=== PATIENT | male | born 1945 | race Caucasian/White ===

== ENCOUNTER 2022-04-03 18:46 | Emergency (ER) | payer MEDICARE, SELFPAY ==
[2022-04-03 18:57] VITALS: BP 138/53; PULSE 86; RESP 16; TEMP 37.3; O2SAT 98
--- NOTE | 2022-04-03 19:20 | ED.GENADULT ---
HPI - General Adult General Chief complaint: Upper Respiratory Infection Stated complaint: Cold Symptoms Source: patient Mode of arrival: ambulatory Limitations: no limitations History of Present Illness HPI narrative: Patient presents requesting COVID test. He indicates his is at a rehab facility and he went to visit her 2 days ago. She had a COVID swab at that time which was negative. She was swabbed yesterday and that test came back positive. He reports chronic rhinorrhea, unchanged from baseline. He states his doctor informed him it was related to history of smoking. He no longer smokes. He denies any fever, chills, alterations in sensations of taste or smell, cough, shortness of breath, nausea, vomiting, diarrhea. No additional complaints or concerns. Related Data Home Medications Medication Instructions Recorded Confirmed amlodipine 5 mg tablet 5 mg PO DIRECTED 04/03/22 04/03/22 Allergies Allergy/AdvReac Type Severity Reaction Status Date / Time No Known Allergies Allergy Verified 04/03/22 19:07 Review of Systems Review of Systems: CONSTITUTIONAL: Denies fever, chills, or sweats. EYES: Denies visual changes, redness, or discharge. ENT: Reports chronic rhinorrhea, unchanged from baseline. Denies sore throat or otalgia. CARDIOVASCULAR: Denies chest pain, palpitations, or edema. RESPIRATORY: Denies cough or dyspnea. GASTROINTESTINAL: Denies abdominal pain, nausea, vomiting, or diarrhea. GENITOURINARY: Denies dysuria or hematuria. SKIN: Denies rash or itching. MUSCULOSKELETAL: Denies back pain, joint pain, or myalgia. NEUROLOGIC: Denies headache, numbness, dizziness, or weakness. PSYCHIATRIC: Denies anxiety or depression. [facility] Past Medical History Medical History No pertinent past medical history Surgical History Surgical History No pertinent past surgical history Family History Family History Mother Family history non-contributory Social History Social History Smoking status: Former smoker Tobacco type: cigarettes Substance use: never Living arrangements: with family Gender identity (if verbalized by the patient): Male Sexual Orientation (if Verbalized by the Patient): Straight or Heterosexual Spiritual care concerns: No Exam Narrative: GENERAL: Well-appearing, well-nourished, and in no acute distress. HEAD: Normocephalic, atraumatic. EYES: PERRLA and EOMI. ENT: Nares clear, no rhinorrhea or epistaxis. Mucous membranes moist. Oropharynx without tonsillar hypertrophy exudate or other lesions. Bilateral TMs pearly burton nonbulging NECK: Supple. No adenopathy or masses. No carotid bruits or JVD CHEST: Clear to auscultation. No respiratory distress. No wheezes rales or rhonchi HEART: Regular rate and rhythm. No murmur heard. Normal peripheral pulses. ABDOMEN: Soft, nontender, nondistended, normal active bowel sounds. EXTREMITIES: Normal range of motion. No edema. SKIN: Warm, dry, no rash. NEURO: No focal deficits. Alert and oriented x3. PSYCH: Normal mood and affect. Course Course Emergency Course: This is a 76-year-old male who presented requesting a COVID test. COVID was positive. He is essentially asymptomatic. Will avoid Paxlovid. Advised on quarantine process. Follow up with PCP. Go to ER for SOB or worsening symptoms. Pt in agreement with plan of care. Level of Care: Express Care Visit Vital Signs Vital signs: Vital Signs Temperature 37.3 C 04/03/22 18:57 Pulse Rate 86 04/03/22 18:57 Respiratory Rate 16 04/03/22 18:57 Blood Pressure 138/53 L 04/03/22 18:57 Pulse Oximetry 98 04/03/22 18:57 Oxygen Delivery Room Air 04/03/22 18:57 Temperature 37.3 C 04/03/22 18:57 Pulse Rate 86 02/04
== END 2022-04-03 19:29 | disposition home or self-care (01) ==
PROVIDERS: Emergency Provider Nurse Practitioner; PCP Internal Medicine Infectious Disease
DX: U07.1 COVID-19 (principal); Z87.891 Personal history of nicotine dependence
CPT/HCPCS: 87426; 87804; 99213; C9803; G0463